=== PATIENT | male | born 1960 | race Caucasian/White ===

== ENCOUNTER 2016-03-11 12:44 | Inpatient (IN) | payer BC ==
[~2016-03-11] VITALS: Ht 182.9 cm; Wt 113.9 kg
[2016-08-23] VITALS (9 sets, daily range): BP systolic 109–141; BP diastolic 61–91; PULSE 65–106; TEMP 98–98.1
[2016-08-23 08:02] LABS: HEMATOCRIT 45.5 % (42.0-52.0); HEMOGLOBIN 15.1 g/dl (13.5-18.0); MEAN CELL VOLUME 89 fl (80.0-100.0); MEAN CORPUSCULAR HEMOGLOBIN 30 pg (27.0-31.0); MEAN CORPUSCULAR HGB CONC 33 g/dl (33.0-37.0); MEAN PLATELET VOLUME 9.9 fl (7.4-10.4); PLATELET COUNT 288 K/mm3 (130-400); REDCELL DISTRIBUTION WIDTH-CV 12.8 % (11.5-14.5); WHITE BLOOD COUNT 8.8 K/mm3 (4.8-10.8)
[2016-08-23 08:10] LABS: CALCIUM 9.5 mg/dL (8.4-10.2); CREATININE, serum 1.06 mg/dL (0.66-1.25); POTASSIUM 4.1 mmol/L (3.4-5.0)
[2016-08-24 00:23] VITALS: BP 128/79; PULSE 91; TEMP 97.2
[2016-08-24 04:43] VITALS: BP 126/82; PULSE 93; TEMP 98.8
[2016-08-24 07:20] VITALS: BP 118/58; PULSE 106; TEMP 97.9
[2016-08-24 07:22] LABS: HEMATOCRIT 38.9 % (42.0-52.0)
[2016-08-24 07:23] LABS: HEMOGLOBIN 12.6 g/dl (13.5-18.0)
[2016-08-24 11:51] VITALS: BP 123/74; PULSE 107; TEMP 97.8
[2016-08-24 16:44] VITALS: BP 134/90; PULSE 87; TEMP 97.8
[2016-08-24 20:05] VITALS: BP 133/86; PULSE 97; TEMP 98.4
[2016-08-25 04:57] VITALS: BP 105/67; PULSE 75; TEMP 98.4
[2016-08-25] MEDS ORDERED: NORCO 325 MG-7.1 TAB PO (06:53)
[2016-08-25] MEDS ORDERED: ASPI325T6 PO (06:53)
[2016-08-25] MEDS ORDERED: SENOKOT S 50 MG1 TAB PO (06:55)
[2016-08-25] MEDS ORDERED: ROXICODONE 55 MG/TAB PO (06:55)
[2016-08-25 08:24] VITALS: BP 113/73; PULSE 104; TEMP 98.8
[2016-08-25 08:48] LABS: HEMATOCRIT 35.8 % (42.0-52.0)
[2016-08-25 11:24] VITALS: BP 118/67; PULSE 99; TEMP 98.2
== END 2016-08-25 15:15 | disposition home or self-care (01) | DRG 470 ==
LOC: JCC 05-30 11:30
PROVIDERS: Nurse Anesthetist, Certified Registered; Orthopaedic Surgery
PROC: 0SRD0J9 Replacement of Left Knee Joint with Synthetic Substitute, Cemented, Open Approach (ICD-10-PCS; principal; 2016-08-23 10:00)
DX: M17.12 Unilateral primary osteoarthritis, left knee (principal); Z87.891 Personal history of nicotine dependence
CPT/HCPCS: A4315; A9284; C1713; C1776; J0690; J2250; J2704; J3010